=== PATIENT | male | born 1970 | race Two or more races ===

== ENCOUNTER 2024-11-02 11:57 | Emergency (ER) | payer MEDICAID, SELFPAY ==
[2024-11-02 12:06] VITALS: BP 156/89; PULSE 60; RESP 19; TEMP 36.9; O2SAT 98; BMI 34.4
--- NOTE | 2024-11-02 12:17 | XR_ITS ---
Examination: Knee, right , 3 views Technique: Knee AP, lateral, oblique 3 views Date and time of exam: November 02, 2024 1229 hours INDICATIONS: Right knee pain one week FINDINGS: Moderate osteopenia Mild to moderate narrowing medial joint space Mild osteoarthritis patellofemoral joint Small knee effusion No fracture IMPRESSION: Mild to moderate narrowing medial joint space Mild osteoarthritis patellofemoral joint
--- NOTE | 2024-11-02 12:17 | XR_ITS ---
Examination: Foot, left, 3 views Technique: AP, oblique, lateral views foot, 3 views Date and time of exam: November 02, 2024 1307 hours INDICATIONS: Right foot pain one week. FINDINGS: Old fracture proximal third metatarsal No acute fracture Minimal bunion deformity Mild osteoarthritis first metatarsophalangeal joint 3 mm plantar bony calcaneal spur No roseann cortical bone destruction Old healed fracture proximal phalanx fifth digit IMPRESSION: Old healed fracture proximal third metatarsal Minimal bunion deformity Mild osteoarthritis first metatarsophalangeal joint 3 mm plantar bony calcaneal spur
[2024-11-02] MEDS: KETOROLAC INJ 30 MG/ML VIAL IM (12:24)
--- NOTE | 2024-11-02 12:24 | EDNOTE_ITS ---
ED Extremity Problem RME/HPI General Chief complaint: Extremity Problem,Nontraumatic Stated complaint: RIGHT KNEE PAIN/LEFT ANKLE PAIN x 7 DAYS Time Seen by Provider: 11/02/24 12:00 Arrival date/time: 11/02/24 11:57 53-year-old male presents to the emergency department today complains of right knee pain and left ankle pain ongoing x 7 days patient reports no fever nausea vomiting there are no other associated symptoms or aggravating factors no other modifying factors, patient denies taking medication before coming to ER today Limitations: no limitations Related Data Home Medications ?Medication ?Instructions ?Recorded ?Confirmed atenolol 50 mg tablet 50 mg PO BID High Blood Pressure 09/15/13 ##30 Multivitamins * (CENTRUM *) 1 tab PO QDAY #0 tabs 01/26/16 hydromorphone 4 mg tablet 4 mg PO Q8HR PRN PAIN #0 tabs 01/26/16 (Dilaudid) lisinopril 40 mg tablet 40 ml PO QDAY #0 tabs 01/26/16 naproxen 500 mg tablet,delayed 500 mg PO BIDWM ##0 01/26/16 release (EC-Naprosyn) Previous Rx's ?Medication ?Instructions ?Recorded amoxicillin 875 mg-potassium 1 tab PO Q12H #14 tabs 10/22/23 clavulanate 125 mg tablet benzonatate 100 mg capsule 100 mg PO TID PRN cough #10 caps 10/22/23 hydrocodone 5 mg-acetaminophen 325 1 tab PO BID PRN pain #8 tabs 11/02/24 mg tablet meloxicam 7.5 mg tablet 7.5 mg PO QDAY 7 days #7 tabs 11/02/24 Allergies Allergy/AdvReac Type Severity Reaction Status Date / Time No Known Allergies Allergy Verified 11/02/24 12:01 Review of Systems Review of Systems Systems Reviewed: All systems reviewed, normal except as documented Constitutional Constitutional: Reports system reviewed and no additional complaints, except as documented, Denies fever(s) and Denies headache(s) Eyes Eyes: Reports system reviewed and no additional complaints, except as documented and Denies blurry vision ENT Ears, Nose, Mouth, and Throat: Reports system reviewed and no additional co mplaints, except as documented, Denies headache(s), Denies nasal congestion and Denies nasal discharge Cardiovascular Cardiovascular: Reports system reviewed and no additional complaints, except as documented, Denies chest pain and Denies dyspnea Respiratory Respiratory: Reports system reviewed and no additional complaints, except as documented, Denies chest congestion, Denies cough and Denies dyspnea Gastrointestinal Gastrointestinal: Reports system reviewed and no additional complaints, except as documented and Denies abdominal pain Musculoskeletal Musculoskeletal: Reports system reviewed and no additional complaints, except as documented and Reports other (Left heel pain, right knee pain) Integumentary/Breasts Skin/Breast: Reports system reviewed and no additional complaints, except as documented and Denies rash Neurologic Neurologic: Reports system reviewed and no additional complaints, except as documented, Reports as per HPI and Denies headache(s) Past Medical History Past Medical History NEUROLOGIC: Negative Neurological Disorders CARDIAC: Negative Cardiac Disorders or Congestive Heart Failure RESPIRATORY: Negative Chronic Obstructive Pulmonary Disease (COPD) GASTROINTESTINAL: Positive Cirrhosis GENITOURINARY: Negative Renal Disease MUSCULOSKELETAL: Positive Musculoskeletal Disorders and Arthritis ENDOCRINE: Negative Endocrine Disorders, Diabetes Mellitus Type 1 or Diabetes Mellitus Type 2 HEMATOLOGIC: Negative Blood Disorders OTHER HISTORY: Negative Hospitalization, Autoimmune Disease, Down Syndrome, Developmental Delay, Shingles, Falls or Organ Transplant Surgical History SURGICAL: Negative Cardiac Surgery or Organ Transplant Social History SMOKING STATUS: Never smoker ED Exam General Limitations: Present no limitations General appearance: Present alert and in no apparent distress Head Head exam: Present atraumatic Eye Eye exam: Present normal appearance, PERRL and EOMI ENT ENT exam: Present normal exam, normal oropharynx and mucous membranes moist Neck Neck exam: Present normal inspection, full ROM and trachea midline Chest Chest inspection: Present normal inspection and symmetric chest wall rise Respiratory Respiratory exam: Present normal lung sounds bilaterally Cardiovascular Cardiovascular exam: Present regular rate, normal rhythm and normal heart sounds Abdominal Exam Abdominal exam: Present soft and normal bowel sounds Extremities Exam Extremities exam: Present full ROM, tenderness, normal capillary refill and other (Left heel pain, right knee pain mild swelling of right knee) Back Exam Back exam: Present normal inspection and full ROM Neurological Exam Neurological exam: Present alert, oriented X3 and CN II-XII intact Psychiatric Psychiatric exam: Present normal affect and normal mood Skin Skin exam: Present warm, dry, intact and normal color Course Quality Measures none Orders Category Date Time Status XR foot comp LT min 3V Stat Exams 11/02/24 12:17 Completed XR knee RT 3V Stat Exams 11/02/24 12:17 Completed Uric Acid Stat Lab 11/02/24 12:33 Completed Dexamethasone Inj [Decadron Inj] Med 11/02/24 12:17 Discontinued 10 mg PO X1 ONE Ketorolac Inj [Toradol Inj] Med 11/02/24 12:17 Discontinued 30 mg IM X1 ONE Vital Signs Vital signs: Vital Signs Temperature 98.4 F 11/02/24 12:06 Pulse Rate 60 11/02/24 12:06 Respiratory Rate 19 11/02/24 12:06 Blood Pressure 156/89 H 11/02/24 12:06 Pulse Oximetry (%) 98 11/02/24 12:06 Oxygen Delivery Method Room Air 11/02/24 12:06 O2 saturation 98% on room air within normal limits Extremity Problem MDM Narrative MDM Narrative:: 53-year-old male presents to the emergency department today complains of right knee pain and left ankle pain ongoing x 7 days patient reports no fever nausea vomiting there are no other associated symptoms or aggravating factors no other modifying factors, patient denies taking medication before coming to ER today X-ray of the right knee and left heel obtained Uric acid obtained to rule out gout Patient given Toradol and dexamethasone here Patient discharged home in no distress to follow-up with primary care doctor in the next 24 to 48 hours and for any worsening symptoms to return to the ER immediately Patient data External records reviewed:: [facility] [place] previous records Clinical information provided by:: patient Social determinants that could affect healthcare access:: none Patient has the following chronic illnesses:: See history How is presenting disease/condition affected by chronic disease/condition?: uneffected by Evaluation data The following diagnostics were reviewed and interpreted by me:: lab results and radiology exam(s) Lab and/or radiology exams considered but not ordered:: Labs and radiology obtained Interpretation Summary: Reviewed by me Medications / Prescriptions Medications or Prescriptions considered but not ordered:: Given Medication administrations:: Medication Administration History Discontinued Medications Dexamethasone Sodium Phosphate (Dexamethasone Sod Phos Inj 10 Mg/Ml Vial) 10 mg PO X1 ONE Stop: 11/02/24 12:18 Last Admin: 11/02/24 12:25 Dose: 10 mg Documented By: ED Ketorolac Tromethamine (Ketorolac Inj 30 Mg/Ml Vial) 30 mg IM X1 ONE Stop: 11/02/24 12:18 Last Admin: 11/02/24 12:24 Dose: 30 mg Documented By: ED Given Consultations Consultation(s) initiated? (list below): No Diagnosis Extremity Problem Differential Diagnosis: other (Knee sprain, knee fracture, heel sprain, hip fracture, gout) Most likely diagnosis given after review of the tests above:: Heel pain, right knee pain Admission Indicated Admission indicated?: not indicated Admission Request Was there a request for admission?: No Disposition Plan Disposition Plan: Discharge Discharge Attestation Discharge Attestation: The patient and all family members were given an opportunity to ask questions and understood the discharge instructions. Discharge instructions specifically effects, indications for sooner follow up or return to the emergency department, and the expected course of current diagnosis. Patient condition: Stable Discharge Plan Plan Patient Disposition: HOME (Self Care) Disposition Comment: Stable Prescriptions/Referrals Prescriptions/Med Rec: New hydrocodone-acetaminophen 5-325 mg tablet 1 tab PO BID MDD 10 PRN (Reason: pain) Qty: 8 0RF meloxicam 7.5 mg tablet 7.5 mg PO QDAY 7 Days Qty: 7 0RF No Action atenolol 50 MG tablet 50 mg PO BID Qty: 30 naproxen [EC-Naprosyn] 500 MG tablet,delayed release (DR/EC) 500 mg PO BIDWM Qty: 0 hydromorphone [Dilaudid] 4 MG tablet 4 mg PO Q8HR PRN (Reason: PAIN) Qty: 0 Multivitamins * (CENTRUM *) 1 EACH tablet 1 tab PO QDAY Qty: 0 lisinopril 40 MG tablet 40 ml PO QDAY Qty: 0 amoxicillin-pot clavulanate 875-125 mg tablet 1 tab PO Q12H Qty: 14 0RF benzonatate 100 mg capsule 100 mg PO TID PRN (Reason: cough) Qty: 10 0RF Referrals: Andrae Vora MD [Primary Care Provider] - 11/05/24 Problem List Clinical Impression: Osteoarthritis Patient/Caregiver Discharge Instructions Education Materials: Osteoarthritis Additional Instructions: Please follow up with your primary care doctor in the next 24-48hrs for any worsening symptoms return here immediately Print Language: Bruneian Stand Alone Forms: [employer] Award Info., Patient Portal Info Letter PA/REFINERY OPERATOR [employer] Supervising Physician PA/REFINERY OPERATOR [employer] Supervising Physician: Dr. Del Cid
[2024-11-02] MEDS: DEXAMETHASONE SOD PHOS INJ 10 MG/ML VIAL PO (12:25)
[2024-11-02 13:11] LABS: Uric Acid 7.4 mg/dL (3.7-9.2)
== END 2024-11-02 14:34 | disposition home or self-care (01) ==
PROVIDERS: Nurse Practitioner Primary Care; Emergency Provider Emergency Medicine; PCP Family Medicine
DX: M17.11 Unilateral primary osteoarthritis, right knee (principal); M19.072 Primary osteoarthritis, left ankle and foot
CPT/HCPCS: 36415; 73562; 73630; 84550; 96372; 99283; J1100; J1885

== ENCOUNTER 2025-03-28 15:22 | Emergency (ER) | payer MEDICAID, SELFPAY ==
[2025-03-28 15:23] VITALS: BMI 30.9
[2025-03-28 15:55] VITALS: BP 139/88; PULSE 95; RESP 18; TEMP 37.3; O2SAT 93
--- NOTE | 2025-03-28 15:57 | XR_ITS ---
Examination: PA lateral chest 2 views TECHNIQUE: Upright PA and lateral chest 2 views Date and time: March 28, 2025 1622 hours Compared to October 22, 2023 INDICATIONS: Coughing one week. FINDINGS: Significant pneumonia posterior basal segment right lower lobe Normal heart size Mild osteopenia IMPRESSION: Significant pneumonia posterior basal segment right lower lobe
[2025-03-28] MEDS: DEXAMETHASONE SOD PHOS INJ 10 MG/ML VIAL PO (16:07)
--- NOTE | 2025-03-28 17:29 | PD.EDURI ---
Upper Respiratory Inf. RME/HPI General Chief Complaint: Flu Like Symptoms Stated Complaint: COUGH/PHLEGM WITH UPPER BACK PAIN Time Seen by Provider: 03/28/25 15:49 Source: patient Arrival date/time: 03/28/25 15:22 54-year-old male with no known medical history presents to the emergency room with a chief complaint of cough, phlegm, upper back pain x 4 days Mode of arrival: ambulatory Limitations: no limitations Related Data Home Medications ?Medication ?Instructions ?Recorded ?Confirmed atenolol 50 mg tablet 50 mg PO BID High Blood Pressure 09/15/13 ##30 Multivitamins * (CENTRUM *) 1 tab PO QDAY #0 tabs 01/26/16 hydromorphone 4 mg tablet 4 mg PO Q8HR PRN PAIN #0 tabs 01/26/16 (Dilaudid) lisinopril 40 mg tablet 40 ml PO QDAY #0 tabs 01/26/16 naproxen 500 mg tablet,delayed 500 mg PO BIDWM ##0 01/26/16 release (EC-Naprosyn) Previous Rx's ?Medication ?Instructions ?Recorded amoxicillin 875 mg-potassium 1 tab PO Q12H #14 tabs 10/22/23 clavulanate 125 mg tablet benzonatate 100 mg capsule 100 mg PO TID PRN cough #10 caps 10/22/23 hydrocodone 5 mg-acetaminophen 325 1 tab PO BID PRN pain #8 tabs 11/02/24 mg tablet albuterol sulfate 90 mcg/actuation 2 puff inhalation Q6H PRN 03/28/25 aerosol inhaler (Ventolin HFA) shortness of breath or wheezing #6.7 grams amoxicillin 875 mg-potassium 1 tab PO BID 7 days #14 tabs 03/28/25 clavulanate 125 mg tablet prednisone 20 mg tablet 40 mg (2 x 20 mg) PO QDAY 4 days 03/28/25 #8 tabs Allergies Allergy/AdvReac Type Severity Reaction Status Date / Time No Known Allergies Allergy Verified 03/28/25 15:24 Review of Systems Review of Systems Systems Reviewed: All systems reviewed, normal except as documented Constitutional Constitutional: Reports system reviewed and no additional complaints, except as documented, Denies fatigue, Denies fever(s), Denies headache(s) and Denies weakness Eyes Eyes: Reports system reviewed and no additional complaints, except as documented, Denies blurry vision and Denies change in vision ENT Ears, Nose, Mouth, and Throat: Reports system reviewed and no additional complaints, except as documented, Denies otalgia, Denies headache(s), Denies nasal congestion, Denies throat swelling and Denies vertigo Cardiovascular Cardiovascular: Reports system reviewed and no additional complaints, except as documented, Denies chest pain, Reports dyspnea and Denies dyspnea on exertion Respiratory Respiratory: Reports system reviewed and no additional complaints, except as documented, Reports change in phlegm color, Denies chest congestion, Reports cough, Reports dyspnea, Denies dyspnea on exertion and Denies wheezing Gastrointestinal Gastrointestinal: Reports system reviewed and no additional complaints, except as documented, Denies abdominal pain, Denies cramping, Denies nausea and Denies vomiting Genitourinary Genitourinary: Reports system reviewed and no additional complaints, except as documented, Denies dysuria and Denies hematuria Musculoskeletal Musculoskeletal: Reports system reviewed and no additional complaints, except as documented and Denies back pain Integumentary/Breasts Skin/Breast: Reports system reviewed and no additional complaints, except as documented and Denies wounds Neurologic Neurologic: Reports system reviewed and no additional complaints, except as documented, Denies confusion, Denies headache(s), Denies lack of coordination, Denies vertigo and Denies weakness Psychiatric Psychiatric: Reports system reviewed and no additional complaints, except as documented, Denies anxiety, Denies confusion, Denies depression, Denies paranoia, Denies suicidal ideation and Denies tactile hallucinations Endocrine Endocrine: Reports system reviewed and no additional complaints, except as documented and Denies fatigue Hematologic/Lymphatic Hematologic/Lymphatic: Reports system reviewed and no additional complaints, except as documented and Denies lymphadenopathy Allergic/Immunologic Allergic/Immunologic: Reports system reviewed and no additional complaints, except as documented, Denies throat swelling, Denies urticaria and Denies wheezing Past Medical History Past Medical History NEUROLOGIC: Negative Neurological Disorders CARDIAC: Negative Cardiac Disorders or Congestive Heart Failure RESPIRATORY: Negative Chronic Obstructive Pulmonary Disease (COPD) GASTROINTESTINAL: Positive Cirrhosis GENITOURINARY: Negative Renal Disease MUSCULOSKELETAL: Positive Musculoskeletal Disorders and Arthritis ENDOCRINE: Negative Endocrine Disorders, Diabetes Mellitus Type 1 or Diabetes Mellitus Type 2 HEMATOLOGIC: Negative Blood Disorders OTHER HISTORY: Negative Hospitalization, Autoimmune Disease, Down Syndrome, Developmental Delay, Shingles, Falls or Organ Transplant Surgical History SURGICAL: Negative Cardiac Surgery or Organ Transplant Social History SMOKING STATUS: Never smoker ED Exam General Limitations: Present no limitations General appearance: Present alert and in no apparent distress Head Head exam: Present atraumatic Eye Eye exam: Present normal appearance, PERRL and EOMI ENT ENT exam: Present normal exam, normal oropharynx and mucous membranes moist Neck Neck exam: Present normal inspection, full ROM and trachea midline Chest Chest inspection: Present normal inspection, symmetric chest wall rise and tenderness Respiratory Respiratory exam: Present normal lung sounds bilaterally; Absent respiratory distress, wheezes, stridor, accessory muscle use or prolonged expiratory phase Cardiovascular Cardiovascular exam: Present regular rate, normal rhythm and normal heart sounds; Absent tachycardia Abdominal Exam Abdominal exam: Present soft and normal bowel sounds Extremities Exam Extremities exam: Present normal inspection and full ROM Back Exam Back exam: Present normal inspection and full ROM Neurological Exam Neurological exam: Present alert, oriented X3 and CN II-XII intact Psychiatric Psychiatric exam: Present normal affect and normal mood Skin Skin exam: Present warm, dry, intact and normal color Course Quality Measures none Orders Category Date Time Status Bedside COVID-19 Antigen Test NOW Care 03/28/25 15:57 Completed Bedside Influenza A&B Antigen Test NOW Care 03/28/25 15:57 Completed XR chest 2V Stat Exams 03/28/25 15:57 Completed Dexamethasone Inj [Decadron Inj] Med 03/28/25 15:57 Discontinued 10 mg PO X1 ONE Vital Signs Vital signs: Vital Signs Temperature 99.2 F 03/28/25 15:55 Pulse Rate 95 03/28/25 15:55 Respiratory Rate 18 03/28/25 15:55 Blood Pressure 139/88 H 03/28/25 15:55 Pulse Oximetry (%) 93 L 03/28/25 15:55 Oxygen Delivery Method Room Air 03/28/25 15:55 O2 saturation 93% Upper Respiratory Infection MDM Narrative MDM Narrative:: 54-year-old male with no known medical history presents to the emergency room with a chief complaint of cough, phlegm, upper back pain x 4 days Patient is hemodynamically stable. He is afebrile not tachycardic and not tachypneic Physical examination shows crackles to the right lower lobes. There is no wheezing. The patient's O2 saturation is 93% on room air and that is after exertion. An x-ray of the chest was completed and shows some right-sided lower lobe pneumonia Antibiotics were sent to the patient's pharmacy Patient was discharged and educated to follow-up with primary care provider in the next 24 to 48 hours and return to the emergency room for any evidence of worsening signs or symptoms Patient data External records reviewed:: [facility] previous records Clinical information provided by:: patient Social determinants that could affect healthcare access:: none Patient has the following chronic illnesses:: Cirrhosis How is presenting disease/condition affected by chronic disease/condition?: uneffected by Evaluation data The following diagnostics were reviewed and interpreted by me:: lab results and radiology exam(s) Lab and/or radiology exams considered but not ordered:: Labs and radiology exams considered and ordered Interpretation Summary: Chest [id number]: Significant pneumonia posterior basal segment right lower lobe Normal heart size Mild osteopenia IMPRESSION: Significant pneumonia posterior basal segment right lower lobe Medications / Prescriptions Medications or Prescriptions considered but not ordered:: Medication given Medication administrations:: Medication Administration History Discontinued Medications Dexamethasone Sodium Phosphate (Dexamethasone Sod Phos Inj 10 Mg/Ml Vial) 10 mg PO X1 ONE Stop: 03/28/25 15:58 Last Admin: 03/28/25 16:07 Dose: 10 mg Documented By: OA Comments: This medication was given PO Medication given Consultations Consultation(s) initiated? (list below): No Diagnosis Upper Respiratory Differential Diagnosis: upper respiratory infection, viral infection, bronchitis, influenza and other (Community-acquired pneumonia) Most likely diagnosis given after review of the tests above:: Community-acquired pneumonia Admission Indicated Admission indicated?: not indicated Admission Request Was there a request for admission?: No Disposition Plan Disposition Plan: Discharge Discharge Attestation Discharge Attestation: The patient and all family members were given an opportunity to ask questions and understood the discharge instructions. Discharge instructions specifically effects, indications for sooner follow up or return to the emergency department, and the expected course of current diagnosis. Patient condition: Stable Discharge Plan Plan Patient Disposition: HOME (Self Care) Discharge Disposition comment: Stable Prescriptions/Referrals Prescriptions/Med Rec: New albuterol sulfate [Ventolin HFA] 90 mcg/actuation HFA aerosol inhaler 2 puff inhalation Q6H PRN (Reason: shortness of breath or wheezing) Qty: 6.7 0RF amoxicillin-pot clavulanate 875-125 mg tablet 1 tab PO BID 7 Days Qty: 14 0RF prednisone 20 mg tablet 40 mg PO QDAY 4 Days Qty: 8 0RF No Action atenolol 50 MG tablet 50 mg PO BID Qty: 30 naproxen [EC-Naprosyn] 500 MG tablet,delayed release (DR/EC) 500 mg PO BIDWM Qty: 0 hydromorphone [Dilaudid] 4 MG tablet 4 mg PO Q8HR PRN (Reason: PAIN) Qty: 0 Multivitamins * (CENTRUM *) 1 EACH tablet 1 tab PO QDAY Qty: 0 lisinopril 40 MG tablet 40 ml PO QDAY Qty: 0 amoxicillin-pot clavulanate 875-125 mg tablet 1 tab PO Q12H Qty: 14 0RF benzonatate 100 mg capsule 100 mg PO TID PRN (Reason: cough) Qty: 10 0RF hydrocodone-acetaminophen 5-325 mg tablet 1 tab PO BID MDD 10 PRN (Reason: pain) Qty: 8 0RF Referrals: No Primary/Family,Physician [Primary Care Provider] - In 1 week Problem List Clinical Impression: Community acquired pneumonia Patient/Caregiver Discharge Instructions Education Materials: ED Pneumonia (Adult) Additional Instructions: Please follow-up with your primary care provider in the next 24 to 48 hours Your chest x-ray showed community-acquired pneumonia. Antibiotics sent to your pharmacy please pick them up and take them as indicated For any evidence of worsening signs or symptoms return to the emergency room immediately Print Language: Kiswahili Stand Alone Forms: [employer] Award Info., Patient Portal Info Letter PA/MANAGER OF CHANGE Supervising Physician PA/MANAGER OF CHANGE Supervising Physician: Dr Fox
== END 2025-03-28 17:45 | disposition home or self-care (01) ==
PROVIDERS: Emergency Provider Emergency Medicine
DX: J18.9 Pneumonia, unspecified organism (principal)
CPT/HCPCS: 71046; 99283; J1100

== ENCOUNTER → 2025-06-15 | Outpatient (CLI) | payer MEDICAID, SELFPAY ==
--- NOTE | 2025-06-15 10:30 | XR_ITS ---
Examination: MRI brain without intravenous contrast. Date and time of exam: June 15, 2025, 0936 hours INDICATIONS: Positional dizziness one year with hearing loss, left side greater than the right side, numbness in the extremities 8 months Technique: Multiple axial and sagittal images of the brain obtained. Siemens high-resolution 1.5 Cony short bore scanners utilized. Sagittal sections, T1-weighted, TR 500, TE 14, are performed. Axial sections proton-density and T2-weighted have been obtained. Inversion recovery axial images, TR 9, 260, TE 111, TI 2500. Diffusion weighted images, axial sections, TR 4800, TE 128, B value 1000 Axial sections, ADC map, TR 4800, TE 128 Findings: Enlargement of the sella turcica is not present. The optic chiasm and infundibular are not remarkable. Prepontine and interpeduncular cisterns are not enlarged. There is no localized enlargement of the medulla or katherine. Fourth ventricle and cerebellar tonsils appear normal in position. No subacute area of hemorrhage density is seen. Mass in the cerebellopontine angle region is not evident. Globes symmetrical. Orbital musculature including medial lateral rectus muscles do not exhibit abnormality. Diffusion-weighted images demonstrate no focus of restricted diffusion.. Increased white matter signal evident, punctate foci increased signal in the left frontal and right frontal white matter FLAIR image 14 and left parietal white matter FLAIR image 15, and left frontal white matter FLAIR image 16 Mass effect upon the ventricular system is not identified. Impression: Negative for acute hemorrhage mass effect or midline shift No acute infarct Scattered punctate foci increased signal in the white matter, demyelinating disease pattern
== END | disposition home or self-care (01) ==
LOC: SMRI 09:19
PROVIDERS: PCP Family Medicine; Referring Provider Physician Assistant; Visit Provider Physician Assistant
DX: R90.82 White matter disease, unspecified (principal)
CPT/HCPCS: 70551